=== PATIENT | female | born 1985 | race Caucasian/White ===

== ENCOUNTER → 2021-02-02 | Outpatient (CLI) | payer OTHER ==
--- NOTE | 2021-02-02 19:04 | US ---
EXAMINATION TYPE: US thyroid st tissue head/neck DATE OF EXAM: 02/02/2021 COMPARISON: NONE CLINICAL HISTORY: E04.9 Enlarged thyroid gland. GLAND SIZE: Right Lobe: 2.6 x 1.6 x 0.7 cm Overall Parenchyma: heterogeneous, lobular contour Left Lobe: 2.6 x 0.9 x 0.9cm Overall Parenchyma: heterogeneous, lobular contour Isthmus Thickness: 0.2 cm NODULES RIGHT: # of nodules measured on right: 0 LEFT: # of nodules measured on left: 0 ISTHMUS: # of nodules measured in the isthmus: 0 Bilateral neck scanned, no evidence of lymphadenopathy. IMPRESSION: Heterogeneous thyroid tissue can be seen with thyroiditis. No discrete nodules identified.
== END ==
LOC: RADUSWWP 16:51
PROVIDERS: ATTEND Family Medicine
DX: E04.9 Nontoxic goiter, unspecified (principal)
CPT/HCPCS: 76536

== ENCOUNTER → 2021-05-15 | Outpatient (CLI) | payer OTHER ==
--- NOTE | 2021-05-15 19:28 | CONS ---
CONSULTATION REASON FOR CONSULTATION: Not sleeping well. HISTORY: Tessie is 35. She is currently living with her boyfriend, and 2-year-old and a 5-year- old child at home. She is having difficulties with her sleep quality. She is going to bed around 10 o'clock. She cannot fall asleep till midnight after sleeping for a few hours she would wake up and on and off she wakes up throughout the night. Ultimately she gets out of bed somewhere between 5 and 6 a.m. in the morning and she averages around 5 hours of sleep and she feels tired and sleepy during the day. She snores. She has had history of sleep apnea as a child and she has undergone tonsillectomy. No sleep paralysis. No hallucinations. No cataplexy. Some restlessness in lower extremities. No sleepwalking or sleep talking. No grinding. No anxiety or panic attacks. She has utilized melatonin gummies 5 mg and she takes around once or twice a week. She has taken also levothyroxine for hypothyroidism and lisinopril for blood pressure control. Current Ollie score is at 8. No substance abuse. No alcoholism. She drinks soda probably at dinnertime. No head trauma. No meningitis. Her uncle has obstructive sleep apnea. PAST MEDICAL HISTORY: Hypothyroidism, hypertension, obesity, childhood history of obstructive sleep apnea with a previous tonsillectomy. SURGICAL HISTORY: Includes tonsillectomy, appendectomy, D and C, and partial hysterectomy. SOCIAL HISTORY: The patient is a nonsmoker. No history of alcoholism. No history of drugs. FAMILY HISTORY: Uncle has obstructive sleep apnea. MEDICATION: Includes levothyroxine 150 mcg p.o. daily, Zocor 10 mg p.o. daily, vitamin D2 and melatonin gummy. REVIEW OF SYSTEMS: Fourteen-point review of system was done, positive findings are mentioned in history of present illness BP is 134, 77, pulse 96, respirations 16, temp 97.7, saturation 97% on room air. Height is 5 feet 5 inches, weight is 233, BMI 38.5. Ollie score is at 8. Neck size 16 inches. General appearance calm comfortable head is atraumatic normocephalic. NECK: Supple. Tonsils have been resected surgically at a young age. Mallampati class II to III. No goiter or neck masses. Slight overbite. No micrognathia. Neck size is a 16 inches. LUNGS: Clear to auscultation. HEART: Heart sounds are regular rate and rhythm normal S1, S2. No S3, S4. No murmurs. ABDOMEN: Soft, nontender. No organomegaly. EXTREMITIES: No edema no cyanosis or clubbing. IMPRESSION: 1. Sleep fragmentation, possibly with a component of obstructive sleep apnea. There may be a component of insomnia, although I think this is mainly related to her sleep hygiene patterns. Consider also possibility of underlying restlessly legs affecting her sleep. 2. History of childhood sleep apnea/pediatric sleep apnea post tonsillectomy. 3. Obesity with a body mass index of 38.5. 4. Hypothyroidism, on levothyroxine. 5. Hypertension. PLAN: Obviously, with a several factors of all affecting this patient's sleep quality, the patient will need a full polysomnogram to be further evaluated. Important to evaluate her sleep architecture, assess her sleep efficiency and look for any significant sleep breathing disorder and periodic limb movement activity or any other abnormalities contributing to her sleep fragmentation. Encouraged weight loss. Maintaining good sleep hygiene measures. Discussed issues related to sleep hygiene and sleep stimulus control. Will see me back after completing the polysomnogram and further recommendations are to follow. MMODL / IJN: [id number] /
== END ==
LOC: SLEEP 15:46
PROVIDERS: ATTEND Internal Medicine Critical Care Medicine
DX: G47.9 Sleep disorder, unspecified (principal); E66.9 Obesity, unspecified; E03.9 Hypothyroidism, unspecified; I10 Essential (primary) hypertension; Z79.899 Other long term (current) drug therapy; Z68.38 Body mass index [BMI] 38.0-38.9, adult; Z90.09 Acquired absence of other part of head and neck; Z87.09 Personal history of other diseases of the respiratory system
CPT/HCPCS: 99211

== ENCOUNTER → 2021-06-06 | Outpatient (CLI) | payer OTHER ==
--- NOTE | 2021-06-06 11:16 | US ---
EXAMINATION TYPE: US abdomen complete DATE OF EXAM: 06/06/2021 COMPARISON: NONE CLINICAL HISTORY: N83.20 OVARIAN CYST,L68 HIRSUTISM. excessive hair growth for 10 years, patient has partial hysterectomy, no abdominal symptoms. EXAM MEASUREMENTS: Liver Length: 17.5 cm Gallbladder Wall: 0.2 cm CBD: 0.5 cm Spleen: 12.1 cm Right Kidney: 12.1 x 4.5 x 4.4 cm Left Kidney: 12.1 x 4.6 x 5.9 cm Pancreas: wnl Liver: wnl Gallbladder: wnl Evidence for sonographic Rahman's sign: no CBD: wnl Spleen: wnl Right Kidney: wnl Left Kidney: wnl Upper IVC: wnl Abd Aorta: wnl The liver is homogenous. The intrahepatic portion of the IVC and proximal abdominal aorta are within normal limits. There is no evidence of cholelithiasis. Common bile duct is unremarkable. The visu alized portions of the pancreas are homogenous. The spleen is unremarkable. Kidneys are symmetric a nd free of hydronephrosis. No renal lesions are seen. IMPRESSION: No definite sonographic abnormality seen within the abdomen.
--- NOTE | 2021-06-06 13:19 | US ---
EXAMINATION TYPE: US transvaginal DATE OF EXAM: 06/06/2021 COMPARISON: NONE CLINICAL HISTORY: N83.20 OVARIAN CYST,L68 HIRSUTISM. excessive hair growth for 10 year, hysterectomy due to heavy cycles, TECHNIQUE: TV. Transvaginal sonographic images Date of LMP: hysterectomy EXAM MEASUREMENTS: Uterus: Surgically absent Endometrial Stripe: Surgically absent Right Ovary: 2.3 x 2.4 x 2.0 cm Left Ovary: 2.6 x 2.6 x 2.0 cm 1. Uterus: Surgically absent 2. Endometrium: Surgically absent 3. Right Ovary: wnl 4. Left Ovary: 2.0cm hypoechoic lesion that most likely represents a dominant follicle, however, rep eat imaging is recommended in 6-8 weeks. 5. Bilateral Adnexa: wnl 6. Posterior cul-de-sac: wnl IMPRESSION: 2.0 cm hypoechoic lesion of the left kidney most likely represents a dominant follicle. Follow-up ult rasound is recommended in 6-8 weeks. Status post hysterectomy.
== END | disposition home or self-care (01) ==
LOC: RADUSWWP 08:09
PROVIDERS: ATTEND Family Medicine
DX: N83.209 Unspecified ovarian cyst, unspecified side (principal); Z90.710 Acquired absence of both cervix and uterus
CPT/HCPCS: 76700; 76830

== ENCOUNTER → 2021-08-03 | Outpatient (CLI) | payer OTHER ==
--- NOTE | 2021-08-04 07:53 | US ---
EXAMINATION TYPE: US transvaginal DATE OF EXAM: 08/03/2021 COMPARISON: Recent ultrasound June 06, 2021 CLINICAL HISTORY: N83.20 Ovarian cyst; L68.0 Hirsutism. Follow up left ovarian cyst; left pelvic pain still present; hysterectomy 07/2020. TECHNIQUE: TV US per order. Transvaginal sonographic images were medically necessary to better asses s the following anatomy: ovaries. Date of LMP: 06/2020 EXAM MEASUREMENTS: Uterus: surgically removed Endometrial Stripe: surgically removed Right Ovary: 4.1 x 2.5 x 2.9 cm Left Ovary: 2.4 x 2.1 x 2.1 cm 1. Right Ovary: multifollicular with largest as simple follicular cyst with peripheral ring of color flow and size = 2.7 x 2.3 x 2.1cm. 2. Left Ovary: multiple small follicles are noted with largest = 1.0 x 0.7 x 0.7cm. Spectral, color and waveform Doppler imaging shows good arterial and venous flow within the ovaries ; 3. Bilateral Adnexa: wnl 4. Posterior cul-de-sac: wnl Uterus is surgically absent. No free fluid in pelvis. Both ovaries redemonstrated. Interval resolution of a 2.0 cm hypoechoic lesion left ovary felt to ref lect resolved hemorrhagic cyst. New simple thin-walled 2.7 cm cyst or more likely corpus luteal cyst right ovary from recent ovulation. IMPRESSION: As above. No worrisome adnexal mass current study.
== END | disposition home or self-care (01) ==
LOC: RADUSWWP 16:12
PROVIDERS: ATTEND Family Medicine
DX: N83.201 Unspecified ovarian cyst, right side (principal)
CPT/HCPCS: 76830

== ENCOUNTER 2022-05-28 08:20 | Day surgery (SDC) | payer OTHER ==
[2022-05-24 09:52] VITALS: BMI 39.1
[~2022-05-28 08:20] MED LIST: LACTATED RINGERS 1,000 ML IV SCH; LIDOCAINE 1% (10MG/ML) FOR IV START INTRADERMA PRN
[2022-05-28 08:52] VITALS: RESP 16; TEMP 98.3
[2022-05-28] MEDS ORDERED: LIDOCAINE 2% INJ 20 MG/ML (2 ML VIAL) ONE (09:16)
[2022-05-28] MEDS ORDERED: PROPOFOL 10 MG/ML 20 ML VIAL IV ONE (09:16)
--- NOTE | 2022-05-28 09:24 | P.GSHP ---
History of Present Illness H&P Date: 05/28/22 Chief Complaint: Abdominal pain, diverticulitis 36-year-old female here today for upper and lower endoscopy. Patient with complaints of abdominal pain at times epigastric but usually left lower quadrant. Patient also has frequent loose stools. Has 5-6 loose stools per day . No rectal bleeding or melena. Patient was told she likely has diverticulitis. Past Medical History Past Medical History: Hypertension, Thyroid Disorder History of Any Multi-Drug Resistant Organisms: None Reported Past Surgical History: Adenoidectomy, Appendectomy, Section, Tonsillectomy, Uterine Ablation Additional Past Surgical History / Comment(s): D&C X2 , C SECTION X2 Past Anesthesia/Blood Transfusion Reactions: No Reported Reaction Smoking Status: Former smoker - Past Family History Mother Family Medical History: No Reported History Medications and Allergies Home Medications Medication Instructions Recorded Confirmed Type Cetirizine HCl [Zyrtec] 10 mg PO DAILY 05/22/22 05/28/22 History Ergocalciferol [Vitamin D2 (1250 1,250 mcg PO Q30D 05/22/22 05/28/22 History Mcg = [id number] Iu)] Levothyroxine Sodium [Synthroid] 137 mcg PO DAILY 05/22/22 05/28/22 History Losartan [Cozaar] 25 mg PO DAILY 05/22/22 05/28/22 History Allergies Allergy/AdvReac Type Severity Reaction Status Date / Time SEASONAL ALLERGIES Allergy CONGESTION Uncoded 05/28/22 08:46 Surgical - Exam Vital Signs Temp Pulse Resp BP Pulse Ox 98.3 F 91 16 112/55 95 05/28/22 08:51 05/28/22 08:51 05/28/22 08:51 05/28/22 08:51 05/28/22 08:51 Physical exam: General: Well-developed, well-nourished HEENT: Normocephalic, sclerae nonicteric Abdomen: Nontender, nondistended Extremities: No edema Neuro: Alert and oriented Assessment and Plan (1) Abdominal pain Narrative/Plan: Will proceed with upper and lower endoscopy Current Visit: Yes Status: Acute Code(s): R10.9 - UNSPECIFIED ABDOMINAL PAIN SNOMED Code(s): 52148868
--- NOTE | 2022-05-28 09:54 | P.PCN ---
Date of Procedure: 05/28/22 Procedure(s) Performed: PREOPERATIVE DIAGNOSIS: Epigastric pain, diverticulitis POSTOPERATIVE DIAGNOSIS: Mild gastritis, transverse colon polyp PROCEDURE: 1. EGD with biopsy 2. Colonoscopy with snare polypectomy and random biopsy ANESTHESIA: [facility] [place] SURGEON: Andrea Rogers M.D. SPECIMENS: Antrum, polyp, random colon ENDOSCOPIC PROCEDURE: The patient was on the endoscopy table in the left decubitus position. The Olympus gastroscope was inserted into the oropharynx and passed under direct visualization to the region of the third portion of the duodenum. From that point the scope was slowly withdrawn inspecting all surfaces carefully. There were no neoplastic inflammatory or polypoid lesions throughout the duodenum. The pylorus was widely patent. The stomach was carefully inspected. There was mild gastritis present. A biopsy of the antrum took place to rule out H. pylori. Retroflexion revealed a normal hiatus. The esophagus was then carefully examined. There were no neoplastic inflammatory or polypoid lesions throughout the visualized esophagus. The patient was kept on the endoscopy table in the left decubitus position. The Olympus colonoscope was inserted into the anus and passed under direct visualization to the base of the cecum. The appendiceal orifice was visualized. From that point the scope was slowly withdrawn inspecting all surfaces carefully. There were no neoplastic inflammatory or polypoid lesions throughout the cecum or ascending colon. In the transverse colon a small polyp was seen and removed using the snare with cautery technique. The remainder of the transverse descending sigmoid and rectum appeared normal. No visible diverticulosis. Random biopsies throughout the colon were taken to evaluate for microscopic colitis. Digital rectal examination was normal. The patient was taken to the recovery room in stable condition per anesthesia guidelines. RECOMMENDATIONS: Await biopsy results.
[2022-05-28 10:15] VITALS: BP 111/78; PULSE 76
== END 2022-05-28 10:30 | disposition home or self-care (01) ==
LOC: ORWHC2ENDO 08:20
PROVIDERS: ATTEND Surgery
DX: K29.50 Unspecified chronic gastritis without bleeding (principal); D12.3 Benign neoplasm of transverse colon; I10 Essential (primary) hypertension; E07.9 Disorder of thyroid, unspecified; Z90.49 Acquired absence of other specified parts of digestive tract; Z87.891 Personal history of nicotine dependence; Z79.899 Other long term (current) drug therapy; Z79.890 Hormone replacement therapy; Z91.09 Other allergy status, other than to drugs and biological substances; E78.5 Hyperlipidemia, unspecified
CPT/HCPCS: 81025; 88305; 45380; 45385; 43239; J2704; J2001